=== PATIENT | male | born 2005 | race Hispanic/Latino ===

== ENCOUNTER 2023-02-07 17:42 | Emergency (ER) | payer MEDICAID ==
[~2023-02-07] VITALS: Ht 175.3 cm; Wt 104.3 kg
[2023-02-07 17:59] VITALS: BP 154/65
== END 2023-02-07 21:47 | disposition left against medical advice (07) ==
LOC: EDH 17:42
DX: S61.412A Laceration without foreign body of left hand, initial encounter (principal); S61.411A Laceration without foreign body of right hand, initial encounter; S81.012A Laceration without foreign body, left knee, initial encounter; Z53.21 Procedure and treatment not carried out due to patient leaving prior to being seen by health care provider; X58.XXXA Exposure to other specified factors, initial encounter; Y93.89 Activity, other specified; Y92.89 Other specified places as the place of occurrence of the external cause; Y99.8 Other external cause status
CPT/HCPCS: 99281